=== PATIENT | female | born 1965 | race American Indian/Alaskan Native ===

== ENCOUNTER 2017-01-24 13:18 | Emergency (ER) | payer OTHER ==
[2017-01-24] MEDS ORDERED: Sodium Chloride 0.9% 10 ML Syringe FLUSH PRN (14:11)
[2017-01-24] MEDS ORDERED: Ondansetron 4 MG/2 ML SDV IVPUSH ONE (14:11)
--- NOTE | 2017-01-24 14:11 | EDM.PDOC ---
ED HPI GENERAL MEDICAL PROBLEM - General Chief Complaint: Abdominal Pain Stated Complaint: SICK Time Seen by Provider: 01/24/17 14:07 Source of Information: Reports: Patient History Limitations: Reports: No Limitations - History of Present Illness INITIAL COMMENTS - FREE TEXT/NARRATIVE: 52 yo female presents with vomiting for the past 1 hour. States that she just returned from [facility] where she had an EGD performed. States on the way home she began having vomiting. Reports at least ten episodes of vomiting in the past 1hour. C/o right sided abdominal pain Onset: Today, Sudden Onset Time: 13:00 Duration: Constant, Getting Worse Location: Reports: Abdomen Quality: Reports: Burning Severity: Moderate Improves with: Reports: None Worsens with: Reports: None Associated Symptoms: Reports: Nausea/Vomiting Abdomen Pain Score (Numeric/FACES): 8 - Related Data Allergies Allergy/AdvReac Type Severity Reaction Status Date / Time No Known Allergies Allergy Verified 07/27/16 21:21 Home Meds: Home Meds . 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 Musculoskeletal History: Reports: None Neurological History: Reports: None Psychiatric History: Reports: None Endocrine/Metabolic History: Reports: None Hematologic History: Reports: Anemia Immunologic History: Reports: None Oncologic (Cancer) History: Reports: None - Infectious Disease History Infectious Disease History: Reports: None - Past Surgical History Head Surgeries/Procedures: Reports: None GI Surgical History: Reports: Cholecystectomy, EGD Social & Family History - Family History Family Medical History: Noncontributory - Tobacco Use Smoking Status *Q: Current Every Day Smoker Years of Tobacco use: 35 Packs/Tins Daily: 0.5 Used Tobacco, but Quit: No Second Hand Smoke Exposure: Yes - Caffeine Use Caffeine Use: Reports: Soda - Alcohol Use Days Per Week of Alcohol Use: 0 - Recreational Drug Use Recreational Drug Use: No ED ROS GENERAL - Review of Systems Review Of Systems: ROS reveals no pertinent complaints other than HPI. ED EXAM, GI/ABD - Physical Exam Exam: See Below Exam Limited By: No Limitations General Appearance: Alert, WD/WN, No Apparent Distress Respiratory/Chest: No Respiratory Distress, Lungs Clear, Normal Breath Sounds, No Accessory Muscle Use, Chest Non-Tender Cardiovascular: Normal Peripheral Pulses, Regular Rate, Rhythm, No Edema, No Gallop, No JVD, No Murmur, No Rub GI/Abdominal: Soft, Pelvis Stable, Hypoactive Bowel Sounds Neurological: Alert, Oriented, CN II-XII Intact, Normal Cognition, Normal Gait, Normal Reflexes, No Motor/Sensory Deficits Course - Vital Signs Last Recorded V/S: Last Vital Signs Temp 96.2 F 01/24/17 13:38 Pulse 69 01/24/17 13:38 Resp 16 01/24/17 13:38 BP 137/64 01/24/17 13:38 Pulse Ox 99 01/24/17 13:38 - Orders/Labs/Meds Orders: Active Orders 24 hr Category Date Time Status Abdomen 2V AP Flat Upright [CR] Urgent Exams 01/24/17 14:12 Taken Chest 2V [CR] Stat Exams 01/24/17 14:41 Taken Lactated Ringers [Ringers, Lactated] 1,000 ml Med 01/24/17 14:15 Active IV .BOLUS Sodium Chloride 0.9% [Saline Flush] Med 01/24/17 14:11 Active 10 ml FLUSH ASDIRECTED PRN Saline Lock Insert [OM.PC] Stat Oth 01/24/17 14:11 Ordered Medication Orders Lactated Ringer's (Ringers, Lactated) 1,000 mls @ 500 mls/hr IV .BOLUS PRINCESS Last Admin: 01/24/17 14:36 Dose: 500 mls/hr Sodium Chloride (Saline Flush) 10 ml FLUSH ASDIRECTED PRN PRN Reason: Keep Vein Open Last Admin: 01/24/17 14:36 Dose: 10 ml Labs: Laboratory Tests 01/24/17 01/24/17 01/24/17 Range/Units 14:24 14:24 14:27 WBC 18.2 H (5.0-10.0) 10^3/uL RBC 4.32 (4.2-5.4) 10^6/uL Hgb 13.7 (12.0-16.0) g/dL Hct 41.1 (37.0-47.0) % MCV 95.1 (80-100) fL MCH 31.7 (27.0-34.0) pg MCHC 33.3 (33.0-35.0) g/dL Plt Count 293 (150-450) 10^3/uL Neut % (Auto) 84.8 H (42.2-75.2) % Lymph % (Auto) 7.9 L (20.5-50.1) % [place] % (Auto) 7.0 (2-8) % Eos % (Auto) 0.2 L (1.0-3.0) % Baso % (Auto) 0.1 (0.0-1.0) % Sodium (135-145) mmol/L Potassium (3.6-5.0) mmol/L Chloride (101-111) mmol/L Carbon Dioxide (21.0-31.0) mmol/L Anion Gap BUN (7-18) mg/dL Creatinine (0.6-1.3) mg/dL Est Cr Clr Drug Dosing mL/min Estimated GFR (MDRD) BUN/Creatinine Ratio Glucose (74-105) mg/dL Calcium (8.4-10.2) mg/dl Total Bilirubin (0.2-1.0) mg/dL AST (10-42) IU/L ALT (10-60) IU/L Alkaline Phosphatase (42-121) IU/L Total Protein (6.7-8.2) g/dl Albumin (3.2-5.5) g/dl Globulin Albumin/Globulin Ratio Amylase (28-100) U/L Lipase (22-51) U/L Urine Color Yellow (YELLOW) Urine Appearance Slightly cloudy (CLEAR) Urine pH 5.5 (5.0-9.0) Ur Specific Ragland 1.020 (1.005-1.030) Urine Protein 30 H (NEGATIVE) Urine Glucose (UA) Negative (NEGATIVE) Urine Ketones Negative (NEGATIVE) Urine Occult Blood Trace-intact H (NEGATIVE) Urine Nitrite Negative (NEGATIVE) Urine Bilirubin Negative (NEGATIVE) Urine Urobilinogen 0.2 (0.2-1.0) mg/dL Ur Leukocyte Esterase Negative (NEGATIVE) Urine RBC 5-10 H /HPF Urine WBC 0-5 (0-5/HPF) /HPF Ur Epithelial Cells Few /HPF Urine Bacteria Few (0-FEW/HPF) /HPF Urine Mucus Few H /LPF Urine HCG, Qual Negative 01/24/17 Range/Units 14:27 WBC (5.0-10.0) 10^3/uL RBC (4.2-5.4) 10^6/uL Hgb (12.0-16.0) g/dL Hct (37.0-47.0) % MCV (80-100) fL MCH (27.0-34.0) pg MCHC (33.0-35.0) g/dL Plt Count (150-450) 10^3/uL Neut % (Auto) (42.2-75.2) % Lymph % (Auto) (20.5-50.1) % [place] % (Auto) (2-8) % Eos % (Auto) (1.0-3.0) % Baso % (Auto) (0.0-1.0) % Sodium 141 (135-145) mmol/L Potassium 4.0 (3.6-5.0) mmol/L Chloride 107 (101-111) mmol/L Carbon Dioxide 25.0 (21.0-31.0) mmol/L Anion Gap 13.0 BUN 13 (7-18) mg/dL Creatinine 0.6 (0.6-1.3) mg/dL Est Cr Clr Drug Dosing 84.65 mL/min Estimated GFR (MDRD) > 60 BUN/Creatinine Ratio 21.66 Glucose 140 H (74-105) mg/dL Calcium 9.3 (8.4-10.2) mg/dl Total Bilirubin 0.4 (0.2-1.0) mg/dL AST 19 (10-42) IU/L ALT 15 (10-60) IU/L Alkaline Phosphatase 104 (42-121) IU/L Total Protein 7.3 (6.7-8.2) g/dl Albumin 4.4 (3.2-5.5) g/dl Globulin 2.9 Albumin/Globulin Ratio 1.52 Amylase 9461 H (28-100) U/L Lipase > 200 H (22-51) U/L Urine Color (YELLOW) Urine Appearance (CLEAR) Urine pH (5.0-9.0) Ur Specific Ragland (1.005-1.030) Urine Protein (NEGATIVE) Urine Glucose (UA) (NEGATIVE) Urine Ketones (NEGATIVE) Urine Occult Blood (NEGATIVE) Urine Nitrite (NEGATIVE) Urine Bilirubin (NEGATIVE) Urine Urobilinogen (0.2-1.0) mg/dL Ur Leukocyte Esterase (NEGATIVE) Urine RBC /HPF Urine WBC (0-5/HPF) /HPF Ur Epithelial Cells /HPF Urine Bacteria (0-FEW/HPF) /HPF Urine Mucus /LPF Urine HCG, Qual Meds: Medications Generic Name Dose Route Start Last Admin Trade Name Freq PRN Reason Stop Dose Admin Lactated Ringer's 1,000 mls @ 500 mls/hr 01/24/17 14:15 01/24/17 14:36 Ringers, Lactated IV 500 mls/hr .BOLUS PRINCESS Administration Sodium Chloride 10 ml 01/24/17 14:11 01/24/17 14:36 Saline Flush FLUSH 10 ml ASDIRECTED PRN Administration Keep Vein Open Discontinued Medications Generic Name Dose Route Start Last Admin Trade Name Freq PRN Reason Stop Dose Admin Ondansetron HCl 4 mg 01/24/17 14:11 01/24/17 14:37 Zofran IVPUSH 01/24/17 14:12 4 mg ONETIME ONE Administration - Radiology Interpretation Free Text/Narrative:: No free air noted on x-ray. Moderate amount of stool present. - Re-Assessments/Exams Free Text/Narrative Re-Assessment/Exam: 01/24/17 16:[address] Diallo, GI oncology specialist at [facility] who states that patient should be transferred back to [facility] for further workup. Will call ER for report. Will premedicate patient prior to transport with pain medication and anti-emetics. 01/24/17 16:15 Spoke with [facility] One call who states that patient does not need to go to ER. Discussed case with Dr. Bardales , [facility] hospitalist who has accepted patient with diagnosis of Acute pancreatitis. Departure - Departure Time of Disposition: 16:23 Disposition: DC/Tfer to Acute Hospital 02 Condition: Fair Clinical Impression: Pancreatitis Qualifiers: Chronicity: acute Pancreatitis type: unspecified pancreatitis type Acute pancreatitis complication: unspecified Qualified Code(s): K85.90 - Acute pancreatitis without necrosis or infection, unspecified - Discharge Information Forms: ED Department Discharge, Interfacility Transfer EMTALA, Return to Work/ School Form - My Orders Last 24 Hours: My Active Orders 01/24/17 14:11 Sodium Chloride 0.9% [Saline Flush] 10 ml FLUSH ASDIRECTED PRN Saline Lock Insert [OM.PC] Stat 01/24/17 14:12 Abdomen 2V AP Flat Upright [CR] Urgent 01/24/17 14:15 Lactated Ringers [Ringers, Lactated] 1,000 ml IV .BOLUS 01/24/17 14:41 Chest 2V [CR] Stat - Assessment/Plan Last 24 Hours: My Active Orders 01/24/17 14:11 Sodium Chloride 0.9% [Saline Flush] 10 ml FLUSH ASDIRECTED PRN Saline Lock Insert [OM.PC] Stat 01/24/17 14:12 Abdomen 2V AP Flat Upright [CR] Urgent 01/24/17 14:15 Lactated Ringers [Ringers, Lactated] 1,000 ml IV .BOLUS 01/24/17 14:41 Chest 2V [CR] Stat
[2017-01-24] MEDS ORDERED: Lactated Ringers 1,000 ML IV SCH (14:15)
[2017-01-24 15:02] LABS: CHLORIDE,CL 107 mmol/L (101-111); SODIUM,NA 141 mmol/L (135-145)
[2017-01-24 16:07] VITALS: BP 121/49
[2017-01-24] MEDS ORDERED: Morphine 4 MG/ML Syringe IVPUSH ONE (16:09)
[2017-01-24] MEDS ORDERED: Lactated Ringers 1,000 ML IV ONE (16:35)
== END 2017-01-24 18:20 ==
LOC: DL.ED 13:18
DX: K85.90 Acute pancreatitis without necrosis or infection, unspecified (principal); F17.210 Nicotine dependence, cigarettes, uncomplicated; Z90.49 Acquired absence of other specified parts of digestive tract
CPT/HCPCS: 36415; 71020; 74020; 80053; 81001; 81025; 82150; 83690; 85025; 96361; 96374; 96375; 99285; J2270; J2405; J7050; J7120

== ENCOUNTER 2017-02-06 12:54 | Inpatient (IN) | payer OTHER ==
[2017-02-06] MEDS ORDERED: Lactated Ringers 1,000 ML IV ONE (13:43)
[2017-02-06] MEDS ORDERED: Morphine 2 MG/ML Syringe IVPUSH ONE (13:52)
--- NOTE | 2017-02-06 14:00 | EDM.PDOC ---
ED HPI GENERAL MEDICAL PROBLEM - General Chief Complaint: Abdominal Pain Stated Complaint: [id number] PANCREAS INFLAMATION Time Seen by Provider: 02/06/17 13:50 Source of Information: Reports: Patient History Limitations: Reports: No Limitations - History of Present Illness INITIAL COMMENTS - FREE TEXT/NARRATIVE: This 52 yo female patient was sent to the ED from [facility] due to acute on chronic pancreatitis. [facility] had done a complete work-up on the patient, but the patient goes by 2 last names (Alok and Krista). The patient was seen in the ED here on 01/24/17, sent to [place], managed in [place] and discharged. The patient does not know about follow-up. Duration: Constant Location: Reports: Abdomen Quality: Reports: Ache Severity: Severe Improves with: Reports: None Worsens with: Reports: None Associated Symptoms: Reports: No Other Symptoms Upper Abdomen Pain Score (Numeric/FACES): 6 - Related Data Allergies Allergy/AdvReac Type Severity Reaction Status Date / Time No Known Allergies Allergy Verified 02/06/17 13:32 Home Meds: Home Meds . 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 Musculoskeletal History: Reports: None Neurological History: Reports: None Psychiatric History: Reports: None Endocrine/Metabolic History: Reports: None Hematologic History: Reports: Anemia Immunologic History: Reports: None Oncologic (Cancer) History: Reports: None - Infectious Disease History Infectious Disease History: Reports: Chicken Pox, Measles, Mumps - Past Surgical History Head Surgeries/Procedures: Reports: None GI Surgical History: Reports: Cholecystectomy, EGD Social & Family History - Family History Family Medical History: Noncontributory - Tobacco Use Smoking Status *Q: Former Smoker Years of Tobacco use: 35 Packs/Tins Daily: 0.5 Used Tobacco, but Quit: Yes Month Tobacco Last Used: 7 Second Hand Smoke Exposure: Yes - Caffeine Use Caffeine Use: Reports: Tea - Alcohol Use Days Per Week of Alcohol Use: 0 - Recreational Drug Use Recreational Drug Use: No ED ROS GENERAL - Review of Systems Review Of Systems: ROS reveals no pertinent complaints other than HPI. ED EXAM, GI/ABD - Physical Exam Exam: See Below Exam Limited By: No Limitations General Appearance: Alert, WD/WN, Moderate Distress Eyes: Bilateral: Normal Appearance, EOMI Ears: Normal External Exam, Normal Canal, Hearing Grossly Normal, Normal TMs Nose: Normal Inspection, Normal Mucosa, No Blood Throat/Mouth: Normal Inspection, Normal Lips, Normal Teeth, Normal Gums, Normal Oropharynx, Normal Voice, No Airway Compromise Head: Atraumatic, Normocephalic Neck: Normal Inspection, Supple, Non-Tender, Full Range of Motion Respiratory/Chest: No Respiratory Distress, Lungs Clear, Normal Breath Sounds, No Accessory Muscle Use, Chest Non-Tender Cardiovascular: Normal Peripheral Pulses, Regular Rate, Rhythm, No Edema, No Gallop, No JVD, No Murmur, No Rub GI/Abdominal Exam: Normal Bowel Sounds, Tender (diffuse increased in right upper quadrant) (Female) Exam: Deferred Rectal (Female) Exam: Deferred Back Exam: Normal Inspection, Full Range of Motion, NT Extremities: Normal Inspection, Normal Range of Motion, Non-Tender, Normal Capillary Refill, No Pedal Edema Neurological: Alert, Oriented, CN II-XII Intact, Normal Cognition, Normal Gait, Normal Reflexes, No Motor/Sensory Deficits Psychiatric: Normal Affect, Normal Mood Skin Exam: Warm, Dry, Intact, Normal Color, No Rash Lymphatic: No Adenopathy Course - Vital Signs Last Recorded V/S: Last Vital Signs Temp 36.8 C 02/06/17 13:33 Pulse 60 02/06/17 13:33 Resp 16 02/06/17 13:33 BP 119/54 L 02/06/17 13:33 Pulse Ox 100 02/06/17 13:33 - Orders/Labs/Meds Orders: Active Orders 24 hr Category Date Time Status Lactated Ringers [Ringers, Lactated] 1,000 ml Med 02/06/17 13:43 Ordered IV .BOLUS Medication Orders Lactated Ringer's (Ringers, Lactated) 1,000 mls @ 999 mls/hr IV .BOLUS ONE Stop: 02/06/17 14:43 Meds: Medications Generic Name Dose Route Start Last Admin Trade Name Freq PRN Reason Stop Dose Admin Lactated Ringer's 1,000 mls @ 999 mls/hr 02/06/17 13:43 Ringers, Lactated IV 02/06/17 14:43 .BOLUS ONE Discontinued Medications Generic Name Dose Route Start Last Admin Trade Name Debora PRN Reason Stop Dose Admin Morphine Sulfate 1 mg 02/06/17 13:52 Morphine IVPUSH 02/06/17 13:53 ONETIME ONE Departure - Departure Time of Disposition: 14:02 Disposition: Admitted As Inpatient 68 Condition: Fair Clinical Impression: Pancreatitis Qualifiers: Chronicity: acute Pancreatitis type: unspecified pancreatitis type Acute pancreatitis complication: unspecified Qualified Code(s): K85.90 - Acute pancreatitis without necrosis or infection, unspecified - Discharge Information Forms: ED Department Discharge Care Plan Goals: Discussed the results received from [facility], patient's history and patient' s current symptoms with Dr. Brenner. Dr. Brenner accepted the patient for continued evaluation and management as an inpatient at [facility] in [place]. - My Orders Last 24 Hours: My Active Orders 02/06/17 13:43 Lactated Ringers [Ringers, Lactated] 1,000 ml IV .BOLUS - Assessment/Plan Last 24 Hours: My Active Orders 02/06/17 13:43 Lactated Ringers [Ringers, Lactated] 1,000 ml IV .BOLUS
[2017-02-06] MEDS ORDERED: Sodium Chloride 0.9% 10 ML Syringe FLUSH PRN (16:27)
--- NOTE | 2017-02-06 17:05 | HP ---
HISTORY OF PRESENT ILLNESS: Ms. Dickinson is a 52-year-old female, who was admitted because of acute pancreatitis. Actually, the patient's current symptoms started 2 weeks ago when she was in the hospital in [place], admitted because of pancreatitis after an ERCP. During her stay there, her abdominal pain has subsided until on the day of discharge. She has been having this right-sided abdominal pain which she describes as a sharp kind of pain that is aggravated when it gets touched. Two days ago, she had an episode of vomiting after work. Otherwise, no hematemesis, no diarrhea, no bloody stools, dysuria, or hematuria. No fever or chills at home. No report of any jaundice. The patient was seen today in [facility] and blood tests showed an elevated lipase. Prior to this, her lipase on discharge from [place] was 61. Because of this abdominal pain and elevated lipase, she was sent to the emergency room and subsequently admitted. PAST MEDICAL HISTORY: The patient has a past medical history of pancreatitis as well in 2010, hiatal hernia. She is an active smoker. She has had history of headaches. SURGICAL HISTORY: History of cholecystectomy done in 2000 and again 2010, also had adhesiolysis done. Had ERCP with sphincterotomy in July of 2016, hiatal hernia repair, lipoma resection, and upper GI in 2011. SOCIAL HISTORY: Active smoker. No alcohol use. Denies recreational drug use. MEDICATIONS: Reviewed. ALLERGIES: No known drug allergies. REVIEW OF SYSTEMS: Ten systems were reviewed and were negative except for those mentioned above. PHYSICAL EXAMINATION: Vital Signs: Blood pressure 119/54, heart rate of 60 beats per minute, respirations 16 breaths per minute, oxygen saturation 100%. General Appearance: Awake, in distress, not in pain. HEENT: Head, normocephalic and atraumatic. Eyes, anicteric sclerae. CVS: Regular rate and rhythm. Abdomen: Soft. Tenderness on right upper quadrant. No rebound tenderness. No guarding. Extremities: No edema. Good pulses. LABORATORY AND X-RAY DATA: Laboratory done at [facility] showed creatinine 0.6, sodium 142, potassium 4.0, calcium is 9.4. GFR more than 60. Lipase is 431, amylase 146. Hemoglobin 12.3, WBC of 7, platelets 361. ASSESSMENT AND PLAN: Abdominal pain and elevated lipase. The patient will be admitted due to acute pancreatitis. She will be admitted under Medical-Surgical bed, n.p.o., IV fluids to run. Labs are unremarkable except for the elevated lipase and amylase, we will repeat this to ensure continued resolution. PROPHYLAXIS: DVT prophylaxis with Lovenox. CODE STATUS: Full code. [facility] /[id number] MTDD
[2017-02-06] MEDS: Sodium Chloride 0.9% 1,000 ML IV SCH ×2 (17:21→23:54)
[2017-02-06] MEDS: Oxybutynin 5 MG Tab PO SCH (21:21)
[2017-02-06] MEDS: Topiramate 25 MG Tab PO SCH (21:21)
[2017-02-06] MEDS: Morphine 2 MG/ML Syringe IVPUSH PRN (21:27)
[2017-02-07] MEDS: Sodium Chloride 0.9% 1,000 ML IV SCH ×3 (06:33→21:36)
[2017-02-07] MEDS ORDERED: Topiramate 25 MG Tab PO SCH (09:00)
[2017-02-07] MEDS: Oxybutynin 5 MG Tab PO SCH ×3 (10:35→22:35)
[2017-02-07] MEDS: Enoxaparin 40 MG/0.4 ML Syringe SUBCUT SCH (10:35)
[2017-02-07] MEDS: Lidocaine 5% 700 MG Patch TOP SCH (10:36)
[2017-02-07] MEDS: Morphine 2 MG/ML Syringe IVPUSH PRN ×2 (10:57→22:43)
--- NOTE | 2017-02-07 13:25 | PCM.PN ---
- General Info Date of Service: 02/07/17 Admission Dx/Problem (Free Text): Abdominal pain Subjective Update: The patient is a 52-year-old lady with a history of the recurrent pancreatitis. Last time about 2 weeks ago was admitted and evaluated by ERCP in [place]. The patient continued to have abdominal pain and presented to the for evaluation and treatment at [place] where she was noted to have elevated lipase. The patient has been nothing by mouth. Abdominal pain somewhat improved. She is feeling hungry. She denies associated fever or chills. - Review of Systems General: Denies: Fever, Weakness Pulmonary: Denies: Shortness of Breath Cardiovascular: Denies: Chest Pain Gastrointestinal: Reports: Abdominal Pain Neurological: Denies: Confusion - Patient Data Vitals - Most Recent: Last Vital Signs Temp 36.8 C 02/07/17 11:00 Pulse 51 L 02/07/17 11:00 Resp 20 02/07/17 11:00 BP 125/56 L 02/07/17 11:00 Pulse Ox 99 02/07/17 11:00 Weight - Most Recent: 74.933 kg I&O - Last 24 Hours: Intake & Output 02/06/17 02/07/17 02/07/17 22:59 06:59 14:59 Intake Total 2034 560 Output Total 1000 Balance 1034 560 Lab Results Last 24 Hours: Laboratory Results - last 24 hr 02/07/17 Range/Units 06:05 Lipase 66 H (22-51) U/L Med Orders - Current: Current Medications Enoxaparin Sodium (Lovenox) 40 mg SUBCUT DAILY [facility] Last Admin: 02/07/17 10:35 Dose: Not Given Sodium Chloride (Normal Saline) 1,000 mls @ 150 mls/hr IV ASDIRECTED [facility] Last Admin: 02/07/17 06:33 Dose: 150 mls/hr Lidocaine (Lidoderm 5%) 700 mg TOP DAILY [facility] Last Admin: 02/07/17 10:36 Dose: Not Given Morphine Sulfate (Morphine) 1 mg IVPUSH Q4H PRN PRN Reason: Pain (severe 7-10) Last Admin: 02/07/17 10:57 Dose: 1 mg Oxybutynin Chloride (Oxybutynin) 5 mg PO TID [facility] Last Admin: 02/07/17 10:35 Dose: 5 mg Sodium Chloride (Saline Flush) 10 ml FLUSH ASDIRECTED PRN PRN Reason: Keep Vein Open Topiramate (Topamax) 25 mg PO BEDTIME PRINCESS Last Admin: 02/06/17 21:21 Dose: 25 mg Discontinued Medications Lactated Ringer's (Ringers, Lactated) 1,000 mls @ 999 mls/hr IV .BOLUS ONE Stop: 02/06/17 14:43 Last Admin: 02/06/17 14:59 Dose: 999 mls/hr Morphine Sulfate (Morphine) 1 mg IVPUSH ONETIME ONE Stop: 02/06/17 13:53 Last Admin: 02/06/17 14:59 Dose: 1 mg Topiramate (Topamax) 25 mg PO DAILY PRINCESS - Exam General: Alert, Oriented Neck: Supple Lungs: Clear to Auscultation, Normal Respiratory Effort Cardiovascular: Regular Rate, Regular Rhythm GI/Abdominal Exam: Normal Bowel Sounds, Soft, Tender (Diffusely tender, no rebound no rigidity), Other (Obese). No: Rigid, Rebound Extremities: No Pedal Edema Skin: Warm, Dry Psy/Mental Status: Alert, Normal Affect, Normal Mood - Problem List & Annotations (1) Pancreatitis SNOMED Code(s): 13705562 Code(s): K85.90 - ACUTE PANCREATITIS WITHOUT NECROSIS OR INFECTION, UNSP Status: Acute Current Visit: Yes Qualifiers: Chronicity: acute Pancreatitis type: unspecified pancreatitis type Acute pancreatitis complication: unspecified Qualified Code(s): K85.90 - Acute pancreatitis without necrosis or infection, unspecified (2) Abdominal pain SNOMED Code(s): 52608059 Code(s): R10.9 - UNSPECIFIED ABDOMINAL PAIN Status: Acute Current Visit: No Qualifiers: Abdominal location: right upper quadrant Qualified Code(s): R10.11 - Right upper quadrant pain - Problem List Review Problem List Initiated/Reviewed/Updated: Yes - My Orders Last 24 Hours: My Active Orders 02/07/17 Lunch Full Liquid Diet [DIET] 02/08/17 05:11 LACTIC ACID [CHEM] AM LIPASE [CHEM] AM 02/08/17 05:15 BASIC METABOLIC PANEL,BMP [CHEM] AM CBC WITH AUTO DIFF [HEME] AM - Plan Plan:: Abdominal pain This might have related to pancreatitis Lipase is back to normal. We will advance the diet and follow symptoms Will use proton pump inhibitor for possible gastritis causing symptoms DVT prophylaxis We will be with Lovenox Discussed with Dr. Brenner today
[2017-02-07] MEDS: Topiramate 25 MG Tab PO SCH (22:35)
[2017-02-08] MEDS: Sodium Chloride 0.9% 1,000 ML IV SCH (04:17)
[2017-02-08 06:53] LABS: CHLORIDE,CL 109 mmol/L (101-111); SODIUM,NA 141 mmol/L (135-145)
[2017-02-08 07:47] VITALS: BP 105/57
[2017-02-08] MEDS: Oxybutynin 5 MG Tab PO SCH (09:41)
[2017-02-08] MEDS: Lidocaine 5% 700 MG Patch TOP SCH (09:42)
[2017-02-08] MEDS: Enoxaparin 40 MG/0.4 ML Syringe SUBCUT SCH (09:42)
--- NOTE | 2017-02-08 10:29 | PCM.DCSUM1 ---
Discharge Summary - Hospital Course Free Text/Narrative:: The patient is a 52-year-old lady with a history of the recurrent pancreatitis. Last time about 2 weeks ago was admitted and evaluated by ERCP in [place]. The patient continued to have abdominal pain and presented to the for evaluation and treatment at [facility] where she was noted to have elevated lipase. Abdominal pain This might have related to pancreatitis Lipase is back to normal. She has no further abdominal pain. Tolerating diet. We'll be discharged in a stable condition, follow-up with her primary care physician. Will use proton pump inhibitor for possible gastritis causing symptoms - Discharge Data Discharge Date: 02/08/17 Discharge Disposition: Home, Self-Care 01 Condition: Good - Discharge Diagnosis/Problem(s) (1) Pancreatitis SNOMED Code(s): 84862290 ICD Code: K85.90 - ACUTE PANCREATITIS WITHOUT NECROSIS OR INFECTION, UNSP Status: Acute Current Visit: Yes Qualifiers: Chronicity: acute Pancreatitis type: unspecified pancreatitis type Acute pancreatitis complication: unspecified Qualified Code(s): K85.90 - Acute pancreatitis without necrosis or infection, unspecified (2) Abdominal pain SNOMED Code(s): 62801082 ICD Code: R10.9 - UNSPECIFIED ABDOMINAL PAIN Status: Acute Current Visit : No Qualifiers: Abdominal location: right upper quadrant Qualified Code(s): R10.11 - Right upper quadrant pain - Patient Instructions Diet: Heart Healthy Diet Activity: As Tolerated - Discharge Plan Home Medications: Home Meds Lidocaine 5% [Lidoderm 5%] 700 mg TOP DAILY PRN 02/06/17 [History] Omeprazole 20 mg PO ACBREAKFAST 02/06/17 [History] Oxybutynin Chloride 5 mg PO TID 02/06/17 [History] Topiramate 25 mg PO BEDTIME 02/06/17 [History] Referrals: PCP,None [Primary Care Provider] - (follow up in 2-3 days) - Discharge Summary/Plan Comment DC Time >30 min.: No - General Info Date of Service: 02/08/17 Subjective Update: Feeling well, no further abdominal pain. She has been walking around on the corridor. She denies associated fever or chills. - Review of Systems General: Denies: Fever, Weakness Pulmonary: Denies: Shortness of Breath Cardiovascular: Denies: Chest Pain Gastrointestinal: Denies: Abdominal Pain Genitourinary: Denies: Dysuria - Patient Data Vitals - Most Recent: Last Vital Signs Temp 37.0 C 02/08/17 07:00 Pulse 57 L 02/08/17 07:00 Resp 20 02/08/17 07:00 BP 105/57 L 02/08/17 07:00 Pulse Ox 99 02/08/17 07:00 Weight - Most Recent: 74.933 kg I&O - Last 24 hours: Intake & Output 02/07/17 02/08/17 02/08/17 22:59 06:59 14:59 Intake Total 1750 1585 Balance 1750 1585 Lab Results - Last 24 hrs: Laboratory Results - last 24 hr 02/08/17 02/08/17 02/08/17 Range/Units 06:10 06:10 06:10 WBC 8.3 (5.0-10.0) 10^3/uL RBC 3.61 L (4.2-5.4) 10^6/uL Hgb 11.4 L (12.0-16.0) g/dL Hct 34.5 L (37.0-47.0) % MCV 95.6 (80-100) fL MCH 31.6 (27.0-34.0) pg MCHC 33.0 (33.0-35.0) g/dL Plt Count 346 (150-450) 10^3/uL Neut % (Auto) 56.6 (42.2-75.2) % Lymph % (Auto) 30.8 (20.5-50.1) % [place] % (Auto) 10.3 H (2-8) % Eos % (Auto) 1.9 (1.0-3.0) % Baso % (Auto) 0.4 (0.0-1.0) % Sodium 141 (135-145) mmol/L Potassium 3.8 (3.6-5.0) mmol/L Chloride 109 (101-111) mmol/L Carbon Dioxide 24.0 (21.0-31.0) mmol/L Anion Gap 11.8 BUN 5 L (7-18) mg/dL Creatinine 0.6 (0.6-1.3) mg/dL Est Cr Clr Drug Dosing 84.65 mL/min Estimated GFR (MDRD) > 60 Glucose 100 (74-105) mg/dL Lactic Acid 1.0 (0.5-2.2) mmol/L Calcium 8.4 (8.4-10.2) mg/dl Lipase 41 (22-51) U/L Med Orders - Current: Current Medications Enoxaparin Sodium (Lovenox) 40 mg SUBCUT DAILY [facility] Last Admin: 02/08/17 09:42 Dose: Not Given Sodium Chloride (Normal Saline) 1,000 mls @ 150 mls/hr IV ASDIRECTED [facility] Last Admin: 02/08/17 04:17 Dose: 150 mls/hr Lidocaine (Lidoderm 5%) 700 mg TOP DAILY [facility] Last Admin: 02/08/17 09:42 Dose: Not Given Morphine Sulfate (Morphine) 1 mg IVPUSH Q4H PRN PRN Reason: Pain (severe 7-10) Last Admin: 02/07/17 22:43 Dose: 1 mg Oxybutynin Chloride (Oxybutynin) 5 mg PO TID [facility] Last Admin: 02/08/17 09:41 Dose: 5 mg Sodium Chloride (Saline Flush) 10 ml FLUSH ASDIRECTED PRN PRN Reason: Keep Vein Open Topiramate (Topamax) 25 mg PO BEDTIME [facility] Last Admin: 02/07/17 22:35 Dose: 25 mg Discontinued Medications Lactated Ringer's (Ringers, Lactated) 1,000 mls @ 999 mls/hr IV .BOLUS ONE Stop: 02/06/17 14:43 Last Admin: 02/06/17 14:59 Dose: 999 mls/hr Morphine Sulfate (Morphine) 1 mg IVPUSH ONETIME ONE Stop: 02/06/17 13:53 Last Admin: 02/06/17 14:59 Dose: 1 mg Topiramate (Topamax) 25 mg PO DAILY [facility] - Exam General: Reports: Alert, Oriented Lungs: Reports: Clear to Auscultation Cardiovascular: Reports: Regular Rate, Regular Rhythm GI/Abdominal Exam: Normal Bowel Sounds, Soft, Non-Tender, No Distention Extremities: Normal Inspection Skin: Reports: Warm Neurological: Reports: No New Focal Deficit Psy/Mental Status: Reports: Alert, Normal Affect, Normal Mood *Q Meaningful Use (DIS) - VTE *Q VTE Criteria *Q: - Stroke *Q Stroke Criteria *Q: - AMI *Q AMI Criteria *Q:
== END 2017-02-08 12:55 | disposition home or self-care (01) | DRG 440 ==
LOC: DL.ED 12:54 → UNDOADMIN 15:00 → DL.MS 15:00 → DL.ED 15:15 → DL.MS 16:02
PROVIDERS: ADMIT Internal Medicine; ATTEND Internal Medicine
DX: K85.90 Acute pancreatitis without necrosis or infection, unspecified (principal); K86.1 Other chronic pancreatitis; Z87.891 Personal history of nicotine dependence; F17.210 Nicotine dependence, cigarettes, uncomplicated; K44.9 Diaphragmatic hernia without obstruction or gangrene; K86.81 Exocrine pancreatic insufficiency; D64.9 Anemia, unspecified
CPT/HCPCS: 96361; 96374; 99285; J2270; J7120; 36415; 80048; 83605; 83690; 85025; 99284; A9270-GY; J7030

== ENCOUNTER 2019-03-13 22:31 | Emergency (ER) | payer OTHER ==
[2019-03-13 22:46] VITALS: BP 170/63
[2019-03-13] MEDS ORDERED: Acetaminophen/HYDROcodone 325-10 MG Tab PO ONE (23:10)
--- NOTE | 2019-03-13 23:15 | EDM.PDOC ---
ED HPI GENERAL MEDICAL PROBLEM - General Chief Complaint: Back Pain or Injury Stated Complaint: BACK SURGERY IN NOVEMBER, IN ALOT OF PAIN Time Seen by Provider: 03/13/19 23:05 Source of Information: Reports: Patient History Limitations: Reports: No Limitations - History of Present Illness INITIAL COMMENTS - FREE TEXT/NARRATIVE: This 54 yo female patient reports to the ED with lower back pain. The patient reports her pain increased tonight after she stepped wrong in a hole. The patient reports she took 1 dose of Tylenol at about noon today, but has not taken anything else. The patient has a history of low back surgery. Onset: Today Duration: Hour(s):, Constant Location: Reports: Back (low back) Quality: Reports: Ache Severity: Moderate Improves with: Reports: None Worsens with: Reports: None Context: Reports: Other - Related Data Allergies Allergy/AdvReac Type Severity Reaction Status Date / Time No Known Allergies Allergy Verified 03/13/19 22:43 Home Meds: Home Meds Omeprazole 20 mg PO ACBREAKFAST PRN 02/06/17 [History] Oxybutynin Chloride 5 mg PO TID PRN 02/06/17 [History] Topiramate 25 mg PO BEDTIME PRN 02/06/17 [History] Acetaminophen [Tylenol Extra Strength] 1,000 mg PO ASDIRECTED PRN 03/13/19 [ History] Past Medical History - Past Health History Medical/Surgical History: Denies Medical/Surgical History HEENT History: Reports: None Cardiovascular History: Reports: None Respiratory History: Reports: None Gastrointestinal History: Reports: None Genitourinary History: Reports: None 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: Musculoskeletal History: Reports: None, Fracture Neurological History: Reports: Migraines Psychiatric History: Reports: None Endocrine/Metabolic History: Reports: Obesity/BMI 30+ Hematologic History: Reports: Anemia Immunologic History: Reports: None Oncologic (Cancer) History: Reports: None - Infectious Disease History Infectious Disease History: Reports: Chicken Pox, Measles, Mumps - Past Surgical History Head Surgeries/Procedures: Reports: None HEENT Surgical History: Reports: None GI Surgical History: Reports: Cholecystectomy, EGD, ERCP Endocrine Surgical History: Reports: None Neurological Surgical History: Reports: None Musculoskeletal Surgical History: Reports: None Social & Family History - Family History Family Medical History: Noncontributory - Caffeine Use Caffeine Use: Reports: Tea ED ROS GENERAL - Review of Systems Review Of Systems: ROS reveals no pertinent complaints other than HPI. ED EXAM,LOWER BACK PAIN/INJURY - Physical Exam Exam: See Below Exam Limited By: No Limitations General Appearance: Alert, WD/WN, Moderate Distress, Obese Eye Exam: Bilateral Eye: EOMI, Normal Inspection, PERRL Ears: Normal External Exam, Normal Canal, Hearing Grossly Normal, Normal TMs Nose: Normal Inspection, Normal Mucosa, No Blood Throat/Mouth: Normal Inspection, Normal Lips, Normal Teeth, Normal Gums, Normal Oropharynx, Normal Voice, No Airway Compromise Head: Atraumatic, Normocephalic Neck: Normal Inspection, Supple, Non-Tender, Full Range of Motion Respiratory/Chest: No Respiratory Distress, Lungs Clear, Normal Breath Sounds, No Accessory Muscle Use, Chest Non-Tender Cardiovascular: Normal Peripheral Pulses, Regular Rate, Rhythm, No Edema, No Gallop, No JVD, No Murmur, No Rub GI/Abdominal: Normal Bowel Sounds, Soft, Non-Tender, No Organomegaly, No Distention, No Abnormal Bruit, No Mass (Female) Exam: Deferred Rectal (Female) Exam: Deferred Back Exam: Muscle Spasm, Paraspinal Tenderness (lumbar spine) Extremities: Normal Inspection, Normal Range of Motion, Non-Tender, No Pedal Edema, Normal Capillary Refill Neurological: Alert, Normal Mood/Affect, Normal Dorsiflexion, CN II-XII Intact, Normal Plantar Flexion, Normal Gait, Normal Reflexes, No Motor/Sensory Deficits , Oriented x 3 Psychiatric: Normal Affect, Normal Mood Skin Exam: Warm, Dry, Intact, Normal Color, No Rash Lymphatic: No Adenopathy Course - Vital Signs Last Recorded V/S: Last Vital Signs Temp 37.0 C 03/13/19 22:45 Pulse 79 03/13/19 22:45 Resp 20 03/13/19 22:45 BP 170/63 H 03/13/19 22:45 Pulse Ox 100 03/13/19 22:45 - Orders/Labs/Meds Orders: Active Orders 24 hr Category Date Time Status Lumbar Spine 2 or 3V [CR] Urgent Exams 03/13/19 23:09 Ordered methylPREDNISolone Sod Succ [Solu-MEDROL] Med 03/13/19 23:41 Once 125 mg IM ONETIME ONE Medication Orders Methylprednisolone Sodium Succinate (Solu-Medrol) 125 mg IM ONETIME ONE Stop: 03/13/19 23:42 Meds: Medications Generic Name Dose Route Start Last Admin Trade Name Freq PRN Reason Stop Dose Admin Methylprednisolone Sodium Succinate 125 mg 03/13/19 23:41 Solu-Medrol IM 03/13/19 23:42 ONETIME ONE Discontinued Medications Generic Name Dose Route Start Last Admin Trade Name Freq PRN Reason Stop Dose Admin Hydrocodone Bitart/Acetaminophen 1 tab 03/13/19 23:10 03/13/19 23:21 [place] 325-10 Mg PO 03/13/19 23:11 1 tab ONETIME ONE Administration Departure - Departure Time of Disposition: 23:41 Disposition: Home, Self-Care 01 Condition: Fair Clinical Impression: Acute exacerbation of chronic low back pain - Discharge Information *PRESCRIPTION DRUG MONITORING PROGRAM REVIEWED*: Not Applicable *COPY OF PRESCRIPTION DRUG MONITORING REPORT IN PATIENT DEON: Not Applicable Instructions: Back Injury Prevention, [id number], Chronic Back Pain, Easy-to- Read Forms: ED Department Discharge Care Plan Goals: The patient was advised of the examination and x-ray results during the visit. The patient was given an oral dose of [place] and an injection of SoluMedrol while in the ED. The patient was discharged with a script for Prednisone (20 mg ) #10 to take 2 by mouth daily for 5 days. If the patient has any additional symptoms or concerns, the patient should visit her primary care facility or return to the emergency department. - My Orders Last 24 Hours: My Active Orders 03/13/19 23:09 Lumbar Spine 2 or 3V [CR] Urgent 03/13/19 23:41 methylPREDNISolone Sod Succ [Solu-MEDROL] 125 mg IM ONETIME ONE - Assessment/Plan Last 24 Hours: My Active Orders 03/13/19 23:09 Lumbar Spine 2 or 3V [CR] Urgent 03/13/19 23:41 methylPREDNISolone Sod Succ [Solu-MEDROL] 125 mg IM ONETIME ONE
[2019-03-13] MEDS ORDERED: methylPREDNISolone Sodium Succinate 125 MG/2 ML SDV IM ONE (23:41)
== END 2019-03-14 00:05 | disposition home or self-care (01) ==
LOC: DL.ED 22:31
DX: M54.5 Low back pain (principal); G89.29 Other chronic pain; E66.9 Obesity, unspecified; Z90.49 Acquired absence of other specified parts of digestive tract; Z86.2 Personal history of diseases of the blood and blood-forming organs and certain disorders involving the immune mechanism; Z68.30 Body mass index [BMI] 30.0-30.9, adult
CPT/HCPCS: 72100; 96372; 99283; A9270; J2930

== ENCOUNTER 2019-12-15 19:06 | Emergency (ER) | payer OTHER ==
[2019-12-15] MEDS ORDERED: Cyclobenzaprine 10 MG Tab PO ONE (19:07)
[2019-12-15] MEDS: Dexamethasone 4 MG/ML SDV IM ONE (19:57)
[2019-12-15] MEDS ORDERED: Cyclobenzaprine 10 MG Tab ONE (20:12)
--- NOTE | 2019-12-15 20:17 | CR ---
PROCEDURE INFORMATION: Exam: XR Lumbosacral Spine, 2 or 3 Views Exam date and time: 12/15/2019 7:53 PM Age: 54 years old Clinical indication: Low back pain; Prior surgery; Surgery date: 6+ months; Additional info: Pain, injury, wondering if hardware is intact TECHNIQUE: Imaging protocol: XR of the lumbosacral spine, 2 or 3 views. COMPARISON: CR Lumbar Spine 2 or 3V 03/13/2019 11:15 PM FINDINGS: Vertebrae: Bilateral pedicle screws and posterior fusion rods L4-S1. Interbody L5-S1 fusion device.There are no suspicious lytic or osteosclerotic lesions. There are no vertebral compression fractures. Soft tissues: Normal. IMPRESSION: 1. No acute findings. 2. No significant interval change when compared to the CR Lumbar Spine 2 or 3V 03/13/2019 11:15 PM.
--- NOTE | 2019-12-15 20:34 | EDM.PDOC ---
ED HPI GENERAL MEDICAL PROBLEM - General Chief Complaint: Back Pain or Injury Stated Complaint: back pain Time Seen by Provider: 12/15/19 19:25 Source of Information: Reports: Patient, RN, RN Notes Reviewed History Limitations: Reports: No Limitations - History of Present Illness INITIAL COMMENTS - FREE TEXT/NARRATIVE: Patient presents to ER with complaint of low back pain and right-sided radicular pain. Patient states she had back surgery last year. Patient states a few weeks ago she was assisting someone off the ground when she felt a pop in her back. Patient states she is concerned that she broke a screw or broke hardware in her back as she has had significant pain since that time. Patient admits to numbness and tingling down the right leg, and buttocks. Patient denies saddle anesthesia or incontinence of bowel or bladder. Patient states she did call the surgeon who did do her surgery, and he stated this was a new injury and the patient would need an MRI. Onset: Gradual Duration: Constant, Getting Worse Location: Reports: Back Treatments BENCH CHEMIST: Reports: Acetaminophen Lower Back Pain Score (Numeric/FACES): 9 - Related Data Allergies Allergy/AdvReac Type Severity Reaction Status Date / Time No Known Allergies Allergy Verified 12/15/19 19:33 Home Meds: Home Meds Omeprazole 20 mg PO ACBREAKFAST PRN 02/06/17 [History] Oxybutynin Chloride 5 mg PO TID PRN 02/06/17 [History] Topiramate 25 mg PO BEDTIME PRN 02/06/17 [History] Acetaminophen [Tylenol Extra Strength] 1,000 mg PO ASDIRECTED PRN 03/13/19 [ History] Past Medical History - Past Health History Medical/Surgical History: Denies Medical/Surgical History HEENT History: Reports: None Cardiovascular History: Reports: None Respiratory History: Reports: None Gastrointestinal History: Reports: None Genitourinary History: Reports: None 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: Musculoskeletal History: Reports: None, Fracture Neurological History: Reports: Migraines Psychiatric History: Reports: None Endocrine/Metabolic History: Reports: Obesity/BMI 30+ Hematologic History: Reports: Anemia Immunologic History: Reports: None Oncologic (Cancer) History: Reports: None - Infectious Disease History Infectious Disease History: Reports: Chicken Pox, Measles, Mumps - Past Surgical History Head Surgeries/Procedures: Reports: None HEENT Surgical History: Reports: None GI Surgical History: Reports: Cholecystectomy, EGD, ERCP Endocrine Surgical History: Reports: None Neurological Surgical History: Reports: None Other Musculoskeletal Surgeries/Procedures:: Back Surgery November 2018 Social & Family History - Family History Family Medical History: Noncontributory - Tobacco Use Smoking Status *Q: Former Smoker Used Tobacco, but Quit: No Second Hand Smoke Exposure: No - Caffeine Use Caffeine Use: Reports: Soda - Recreational Drug Use Recreational Drug Use: No ED ROS GENERAL - Review of Systems Review Of Systems: Comprehensive ROS is negative, except as noted in HPI. ED EXAM,LOWER BACK PAIN/INJURY - Physical Exam Exam: See Below Exam Limited By: No Limitations General Appearance: Alert, WD/WN, Mild Distress Eye Exam: Bilateral Eye: EOMI, Normal Inspection Ears: Normal External Exam, Hearing Grossly Normal Nose: Normal Inspection Throat/Mouth: Normal Inspection, Normal Voice, No Airway Compromise Head: Atraumatic, Normocephalic Neck: Normal Inspection, Supple, Non-Tender, Full Range of Motion Respiratory/Chest: No Respiratory Distress, Lungs Clear, Normal Breath Sounds, No Accessory Muscle Use, Chest Non-Tender Cardiovascular: Normal Peripheral Pulses, Regular Rate, Rhythm, No Edema, No Gallop, No JVD, No Murmur, No Rub GI/Abdominal: Normal Bowel Sounds, Soft, Non-Tender (Female) Exam: Deferred Rectal (Female) Exam: Deferred Back Exam: Normal Inspection, Decreased Range of Motion, Muscle Spasm, Paraspinal Tenderness, Vertebral Tenderness Extremities: Normal Inspection, No Pedal Edema, Leg Pain (right leg), Limited Range of Motion (right leg) Neurological: Alert, Normal Mood/Affect, Normal Dorsiflexion, CN II-XII Intact, Normal Plantar Flexion, Normal Gait, Normal Reflexes, No Motor/Sensory Deficits , Oriented x 3 Psychiatric: Normal Affect, Normal Mood Skin Exam: Warm, Dry, Intact, Normal Color, No Rash Lymphatic: No Adenopathy Course - Vital Signs Last Recorded V/S: Last Vital Signs Temp 97.8 F 12/15/19 20:47 Pulse 88 12/15/19 20:47 Resp 19 12/15/19 20:47 BP 134/76 12/15/19 20:47 Pulse Ox 97 12/15/19 20:47 - Orders/Labs/Meds Labs: Laboratory Tests 12/15/19 12/15/19 Range/Units 19:26 19:26 Urine Color Light yellow (YELLOW) Urine Appearance Clear (CLEAR) Urine pH 7.0 (5.0-9.0) Ur Specific [place] 1.010 (1.005-1.030) Urine Protein Negative (NEGATIVE) Urine Glucose (UA) Negative (NEGATIVE) Urine Ketones Negative (NEGATIVE) Urine Occult Blood Trace-intact H (NEGATIVE) Urine Nitrite Negative (NEGATIVE) Urine Bilirubin Negative (NEGATIVE) Urine Urobilinogen 0.2 (0.2-1.0) mg/dL Ur Leukocyte Esterase Negative (NEGATIVE) Urine RBC 0-5 /HPF Urine WBC 0-5 (0-5/HPF) /HPF Ur Epithelial Cells Rare (NOT SEEN) /HPF Amorphous Sediment Rare (NOT SEEN) /HPF Urine Bacteria Rare (0-FEW/HPF) /HPF Urine Mucus Not seen (NOT SEEN) /LPF Urine Opiates Screen Negative (NEGATIVE) Ur Oxycodone Screen Negative (NEGATIVE) Urine Methadone Screen Negative (NEGATIVE) Ur Barbiturates Screen Negative (NEGATIVE) U Tricyclic Antidepress Negative (NEGATIVE) Ur Phencyclidine Scrn Negative (NEGATIVE) Ur Amphetamine Screen Negative (NEGATIVE) U Methamphetamines Scrn Negative (NEGATIVE) Urine MDMA Screen Negative (NEGATIVE) U Benzodiazepines Scrn Negative (NEGATIVE) Urine Cocaine Screen Negative (NEGATIVE) U Marijuana (THC) Screen Negative (NEGATIVE) Meds: Medications Discontinued Medications Generic Name Dose Route Start Last Admin Trade Name Freq PRN Reason Stop Dose Admin Cyclobenzaprine HCl Confirm 12/15/19 20:12 Flexeril Administered 12/15/19 20:13 Dose 10 mg .ROUTE .STK-MED ONE Dexamethasone 10 mg 12/15/19 19:45 12/15/19 19:57 Dexamethasone IM 12/15/19 19:46 10 mg ONETIME ONE Administration - Radiology Interpretation Free Text/Narrative:: Lumbar back xray: FINDINGS: Vertebrae: Bilateral pedicle screws and posterior fusion rods L4-S1. Interbody L5-S1 fusion device.There are no suspicious lytic or osteosclerotic lesions. There are no vertebral compression fractures. Soft tissues: Normal. IMPRESSION: 1. No acute findings. 2. No significant interval change when compared to the CR Lumbar Spine 2 or 3V 11:15 PM. Thank you for allowing us to participate in the care of your patient. Dictated and Authenticated by: Dav Martin MD 12/15/2019 8:17 PM Central Time ([place] & [place]) See rad report Departure - Departure Time of Disposition: 20:34 Disposition: Home, Self-Care 01 Condition: Fair Clinical Impression: Lumbar radiculopathy - Discharge Information *PRESCRIPTION DRUG MONITORING PROGRAM REVIEWED*: No *COPY OF PRESCRIPTION DRUG MONITORING REPORT IN PATIENT DEON: No Instructions: Back Injury Prevention, [id number], Muscle Strain, [id number] , Chronic Back Pain, [id number] Forms: ED Department Discharge Additional Instructions: RX: Norflex, Dexamthasone as directed Continue to use Tylenol as directed for pain Follow up with your primary care facility May use heat and ice as tolerated Sepsis Event Note - Evaluation Sepsis Screening Result: No Definite Risk - Focused Exam Vital Signs: Vital Signs Temp Pulse Resp BP Pulse Ox 12/15/19 20:47 97.8 F 88 19 134/76 97 12/15/19 19:15 96.8 F L 71 19 166/79 H 100 Date Exam was Performed: 12/16/19 Time Exam was Performed: 04:18
[2019-12-15 20:50] VITALS: BP 134/76; PULSE 88
== END 2019-12-15 20:47 | disposition home or self-care (01) ==
LOC: DL.ED 19:06
DX: M54.16 Radiculopathy, lumbar region (principal); G43.909 Migraine, unspecified, not intractable, without status migrainosus; E66.9 Obesity, unspecified; Z68.37 Body mass index [BMI] 37.0-37.9, adult; Z87.891 Personal history of nicotine dependence; Z79.899 Other long term (current) drug therapy
CPT/HCPCS: 72100; 80305; 81001; 96372; 99283; A9270; J1100

== ENCOUNTER 2020-06-28 19:59 | Emergency (ER) | payer OTHER ==
[2020-06-28] MEDS ORDERED: Acetaminophen/oxyCODONE 325-5 MG Tab PO ONE ×2 (20:00→22:23)
[2020-06-28] MEDS ORDERED: Cyclobenzaprine 10 MG Tab PO ONE ×2 (20:00→20:56)
[2020-06-28] MEDS ORDERED: Ibuprofen 600 MG Tab PO ONE (20:56)
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
[2020-06-28] MEDS ORDERED: Cyclobenzaprine 10 MG Tab ONE ×2 (21:04→22:35)
--- NOTE | 2020-06-28 21:41 | CR ---
PROCEDURE INFORMATION: Exam: XR Right Ribs with PA Chest, 3 Views Exam date and time: 06/28/2020 8:58 PM Age: 55 years old Clinical indication: Other: Fall posterior lower rib pain TECHNIQUE: Imaging protocol: XR Right ribs 3 views with PA chest. COMPARISON: No relevant prior studies available. FINDINGS: Lungs: Unremarkable. No consolidation. Pleural space: Unremarkable. No pleural effusion. No pneumothorax. Heart/Mediastinum: Unremarkable. No cardiomegaly. Bones/joints: Unremarkable. No rib fracture seen. Postoperative change lower lumbar spine only partially included in the field of view Organs: Air in the biliary tree suggest prior sphincterotomy. There are clips in the upper abdomen suggesting cholecystectomy. IMPRESSION: No acute findings.
--- NOTE | 2020-06-28 21:44 | CR ---
PROCEDURE INFORMATION: Exam: XR Lumbosacral Spine, 2 or 3 Views Exam date and time: 06/28/2020 9:18 PM Age: 55 years old Clinical indication: Other: Fall posterior back pain; Prior surgery; Surgery date: 6+ months; Surgery type: L4-s1 fusion, l5-s1 fusion; Additional info: Fall back pain TECHNIQUE: Imaging protocol: XR of the lumbosacral spine, 2 or 3 views. COMPARISON: CR Lumbar Spine 2 or 3V 12/15/2019 7:53 PM FINDINGS: Bones/joints: Pedicle screws have been applied to L4 and S1 on the right and L5 and S1 on the left. Grade 1 spondylolisthesis L5 upon S1. There is a disc spacing device in the L5-S1 disc. Alignment is otherwise preserved. There is no evidence of acute fracture. Soft tissues: No acute soft tissue abnormalities are identified. Intraperitoneal space: Patient is status post cholecystectomy. Gastrointestinal tract: Non-specific/nonobstructive intestinal gas pattern. Other findings: Air in the biliary tree suggest sphincterotomy. IMPRESSION: No acute findings.
[2020-06-28 22:32] VITALS: BP 157/70; PULSE 77
[2020-06-28] MEDS ORDERED: Acetaminophen/oxyCODONE 325-5 MG Tab ONE (22:35)
== END 2020-06-28 22:40 | disposition home or self-care (01) ==
LOC: DL.ED 19:59
DX: M62.830 Muscle spasm of back (principal); R07.81 Pleurodynia; E66.9 Obesity, unspecified; Z68.36 Body mass index [BMI] 36.0-36.9, adult; Z98.890 Other specified postprocedural states; Z77.22 Contact with and (suspected) exposure to environmental tobacco smoke (acute) (chronic); W19.XXXA Unspecified fall, initial encounter
CPT/HCPCS: 71101; 72100; 81001; 99283; A9270

== ENCOUNTER 2021-09-01 18:33 | Emergency (ER) | payer OTHER ==
[2021-09-01] MEDS ORDERED: Cyclobenzaprine 10 MG Tab PO ONE ×2 (18:34→20:02)
[2021-09-01] MEDS ORDERED: predniSONE 20 MG Tab PO ONE (18:34)
[2021-09-01] MEDS ORDERED: Ketorolac 30 MG/ML SDV IM ONE (20:02)
[2021-09-01] MEDS ORDERED: Cyclobenzaprine 10 MG Tab ONE (20:35)
[2021-09-01] MEDS ORDERED: predniSONE 20 MG Tab ONE (20:37)
[2021-09-01 20:48] VITALS: BP 115/62; PULSE 76
== END 2021-09-01 20:46 | disposition home or self-care (01) ==
LOC: DL.ED 18:33
DX: S39.012A Strain of muscle, fascia and tendon of lower back, initial encounter (principal); E66.9 Obesity, unspecified; Z68.39 Body mass index [BMI] 39.0-39.9, adult
CPT/HCPCS: 72100; 96372; 99283; A9270-GY; J1885; J7512

== ENCOUNTER 2022-08-18 12:25 | Emergency (ER) | payer OTHER ==
[2022-08-18 12:49] VITALS: BP 139/87; PULSE 70
[2022-08-18] MEDS ORDERED: methylPREDNISolone Sodium Succinate 125 MG/2 ML SDV IM ONE (13:41)
== END 2022-08-18 14:11 | disposition home or self-care (01) ==
LOC: DL.ED 12:25
DX: M75.32 Calcific tendinitis of left shoulder (principal); E66.9 Obesity, unspecified; Z68.34 Body mass index [BMI] 34.0-34.9, adult
CPT/HCPCS: 36415; 73030; 73060; 83605; 85025; 85651; 86140; 96372; 99283; 99284; J2930

== ENCOUNTER 2025-03-31 18:36 | Emergency (ER) | payer OTHER ==
[2025-03-31] MEDS: Ketorolac 30 MG/ML SDV IM ONE (19:16)
[2025-03-31 20:04] VITALS: BP 147/76; PULSE 67
== END 2025-03-31 20:00 | disposition home or self-care (01) ==
LOC: DL.ED 18:36
DX: G44.219 Episodic tension-type headache, not intractable (principal); E66.9 Obesity, unspecified; Z68.33 Body mass index [BMI] 33.0-33.9, adult; Z90.49 Acquired absence of other specified parts of digestive tract
CPT/HCPCS: 96372; 99283; A9270; J1885